=== PATIENT | female | born 1960 | race Caucasian/White ===

== ENCOUNTER → 2019-08-20 14:30 | Outpatient (CLI) | payer OTHER, SELFPAY ==
--- NOTE | 2019-08-20 14:35 | US_ITS ---
PROCEDURE: US TRANSVAGINAL CLINICAL INDICATION: DUB COMPARISON: No exams were available for comparison FINDINGS: Uterus measures 7.1 x 3.6 x 4.0 centimeters. Endometrial stripe is 8.3 millimeters. Uterus is anteverted or anteflexed. There is no cul-de-sac fluid. Left ovary is 2.2 x 2.1 x 2.2 centimeters which appears normal. Right ovary is 2.8 x 1.6 by 2.7 centimeters and appears normal. IMPRESSION: Normal exam with endometrial stripe measuring 8.3 millimeters. This could be related to cycle or hormone replacement therapy. Dictated by: Khris Ordaz 08/20/2019 16:45 Electronically signed by Khris Ordaz in [facility] 08/20/2019 16:45
== END ==
PROVIDERS: PCP Nurse Practitioner Family; Visit Provider Nurse Practitioner Family
DX: N93.9 Abnormal uterine and vaginal bleeding, unspecified (principal)
CPT/HCPCS: 76830

== ENCOUNTER → 2020-05-02 14:15 | Outpatient (CLI) | payer OTHER, SELFPAY ==
[2020-05-02 16:11] LABS: Blood Urea Nitrogen 15 mg/dl (7-17); Estimated Glomerular Filt Rate 73 ml/min (>60); GFR (African American) 89 ML/MIN (>60)
== END ==
PROVIDERS: Visit Provider Nurse Practitioner Family
DX: Z01.818 Encounter for other preprocedural examination (principal)
CPT/HCPCS: 36415; 82565; 84520

== ENCOUNTER → 2020-05-03 08:31 | Outpatient (CLI) | payer OTHER, SELFPAY ==
--- NOTE | 2020-05-03 08:39 | CT_ITS ---
PROCEDURE: CT ABDOMEN PELVIS W CON CLINICAL INDICATION: RLQ PAIN,H/O UTERUS CA Right lower quadrant pain, history of uterine cancer COMPARISON: No exams were available for comparison TECHNIQUE: IV Contrast: 75ML OPTIRAY 350 Oral Contrast 450ml Redicat Axial images obtained with sagittal and coronal reformats. All CT scans at the facility use one or more dose reduction, viz: automated exposure control, ma/kV adjustment per patient size (including targeted exams where dose is matched to indication, i.e. head), or iterative reconstruction technique. FINDINGS: LOWER THORAX: Mild atelectatic or fibrotic change in the lingula. Mild nonspecific thickening of the esophagus ABDOMEN & PELVIS: Multiple gallstones are present. The liver, spleen, adrenal glands, pancreas, and kidneys have an unremarkable appearance. No intestinal obstruction or free air. Prior appendectomy. Prior hysterectomy. There are a few scattered diverticula. No evidence of diverticulitis. No acute bony findings. There is a small sclerotic focus involving the right ilium medially which could be due to a bone island. IMPRESSION: Cholelithiasis. No acute findings apparent. Dictated by: Yong Castillo MD 05/04/2020 10:05 Electronically signed by Yong Castillo MD in [facility] 05/04/2020 10:05
== END ==
PROVIDERS: PCP Nurse Practitioner Family; Visit Provider Nurse Practitioner Family
DX: R10.31 Right lower quadrant pain (principal); Z85.42 Personal history of malignant neoplasm of other parts of uterus
CPT/HCPCS: 74177; Q9967

== ENCOUNTER → 2020-06-06 11:59 | Outpatient (CLI) | payer OTHER, SELFPAY ==
[2020-06-06 13:59] LABS: Coronavirus 19 IgG Antibody Negative (Negative); Coronavirus 19 IgM Antibody Negative (Negative)
== END ==
PROVIDERS: Visit Provider Surgery
DX: Z01.818 Encounter for other preprocedural examination (principal)
CPT/HCPCS: 36415; 86328

== ENCOUNTER 2020-06-07 08:20 | Day surgery (SDC) | payer OTHER, SELFPAY ==
[2020-06-03 09:53] VITALS: BMI 36.3
[2020-06-07 08:38] VITALS: BP 127/82; PULSE 71; RESP 16; TEMP 36.7; O2SAT 98
[2020-06-07 09:05] VITALS: O2SAT 99
--- NOTE | 2020-06-07 09:20 | HMH.ANESCL ---
[facility] Anesthesia Checklist - Patient Identification Patient Identification: Arm Band, Verbal (Name & ) - Structural Data Admitted From: Home Planned Operative Procedure/s: Colonoscopy Consent for Planned Operative Procedure(s) Verified: Yes Verified Documents: Surgical Consent, History and Physical - NPO Status Verified Time NPO: 00:00 - Chart Verification Results Verified: BMP - Additional verifications Anesthesia Reactions: No - Airway Assessment C-Spine Mobility Assessed: Yes TMJ Mobility Assessed: Yes Dentition: Good Dentition - Neurological Assessment Level of Consciousness: Awake, Alert, Appropriate, Follows Commands Hx Seizures: No Numbness or tingling in extremities: No - Anesthesia Plan Anesthesia Risk discussed: Yes Anesthesia Plan: Verified ASA Class: III Anesthesia Type: MAC [facility] History I have reviewed the patient's past medical history: Yes Medical History: Reports:: Atrial Fibrillation, Cancer (uterine), Hypertension Denies:: Diabetes Mellitus Type 1, Diabetes Mellitus Type 2, Internal Pacemaker, MRSA, Seizures *Have you ever received a pneumonia vaccine?: No *Have you received a flu vaccine this season?: No Anesthesia experience/problems:: None Other Surgeries: Yes: Appendectomy, , Hysterectomy-Total. No: Pacemaker Amputation: No Fractures: No - *Social History Last grade of school completed: Advanced degree Smoking Status: Never smoker Alcohol Intake: never Substance Use Type: denies use *Occupational Status:: employed Housing: house Household Members: spouse *Travel in the last 8 weeks: Inside the [place] Family Hx:: Cancer, Heart Attack
--- NOTE | 2020-06-07 09:43 | P.PCN_ITS ---
- Procedure: Date: 06/07/20 Procedure Performed:: Total colonoscopy to terminal ileum with polypectomy by snare and biopsy Indications:: Patient is a 59-year-old female referred by Freda Ding for essentially a screening colonoscopy. This would be her initial colonoscopy. She does have a history of uterine cancer and underwent hysterectomy in July 2019 at [facility]. She had subsequently developed atrial fibrillation and is on Xarelto. Her cementer hand is Yue Ojeda. She has had some vague minor right pelvic pain and underwent recent CT scan which was reportedly unremarkable other than incidental finding of gallstones. Patient did previously undergo appendectomy in the past. She does state that she had contacted her cementer hand who advocated holding the Xarelto 3 days prior to procedure. She has no family history of colon cancer. She is essentially asymptomatic regarding symptoms of rectal bleeding or change in bowel habits. Performing Provider:: Omari Bledsoe MD Referring Provider:: Elma Ding Sedation:: Propofol Procedure:: Patient was taken to endoscopy procedure room. She was positioned in a lateral decubitus position. Adequate intravenous sedation was achieved with anesthesia titration of propofol. Variable stiffness Olympus colonoscope was inserted via the anus. With some minimal difficulty due to floppiness of the sigmoid colon the colonoscope was advanced to the cecum. The residual appendiceal orifice and ileocecal valve were clearly identified. Colonoscope was advanced a short distance into the terminal ileum which appeared grossly normal. Colonoscope was withdrawn through the colon with careful surveillance. She had 2 small polyps encountered in the descending colon the first of which was removed with cold cu tting snare and second with cold biopsy forceps. In the sigmoid colon there was a small polyp removed with cold cutting snare. In the distal sigmoid: There were a couple of likely hyperplastic appearing polyps removed with biopsy forceps and in the rectosigmoid region similar polyps were encountered removed with biopsy forceps. She has sigmoid diverticulosis. Within the rectum retroflexion revealed no evidence of any pathologic internal hemorrhoids. Colonoscope was withdrawn. Findings:: Small adenomatous polyps x2 in the descending colon, one removed with cold b iopsy and one removed with cold snare Small sigmoid polyp, adenomatous appearing removed with cold cutting snare Hyperplastic appearing distal sigmoid polyps removed with biopsy x2 Hyperplastic appearing rectosigmoid colon polyp x2 removed with biopsy forceps Sigmoid diverticulosis Recommendations:: Pending the pathology likely repeat colonoscopy within 3 years Complications:: None immediately apparent Estimated blood obtained (mL): 1
[2020-06-07 09:45] VITALS: BP 79/46; PULSE 56; RESP 12; TEMP 36.7; O2SAT 93
[2020-06-07 09:55] VITALS: BP 102/59; PULSE 56; RESP 15; O2SAT 96
[2020-06-07 10:05] VITALS: BP 107/61; PULSE 62; RESP 15; O2SAT 95
[2020-06-07 10:15] VITALS: BP 113/73; PULSE 56; RESP 16; O2SAT 95
== END 2020-06-07 10:15 | disposition home or self-care (01) ==
LOC: OUTP 08:22
PROVIDERS: PCP Nurse Practitioner Family; Visit Provider Surgery
PROC: 0DJD8ZZ Inspection of Lower Intestinal Tract, Via Natural or Artificial Opening Endoscopic (ICD-10-PCS; CPT 45385; principal; 2020-06-07 09:30)
DX: Z12.11 Encounter for screening for malignant neoplasm of colon (principal); K63.5 Polyp of colon; K57.30 Diverticulosis of large intestine without perforation or abscess without bleeding; Z79.01 Long term (current) use of anticoagulants; I48.91 Unspecified atrial fibrillation; I10 Essential (primary) hypertension; Z90.49 Acquired absence of other specified parts of digestive tract; Z90.710 Acquired absence of both cervix and uterus; Z80.9 Family history of malignant neoplasm, unspecified; Z82.3 Family history of stroke; Z79.899 Other long term (current) drug therapy
CPT/HCPCS: 45385; 45380

== ENCOUNTER → 2021-10-06 14:36 | Outpatient (CLI) | payer OTHER, SELFPAY ==
[2021-10-06 15:45] LABS: Basophils # 0.1 K/mm3 (0-0.2); Eosinophils # 0.2 K/mm3 (0.0-0.4); Eosinophils % 2.5 % (0.1-12.0); Hematocrit 43.7 % (37.0-47.0); Lymphocytes # 2.1 K/mm3 (0.7-4.5); Lymphocytes % 32.4 % (10-50); Mean Corpuscular HGB Conc 34.4 g/dL (31.8-35.4); Mean Corpuscular Hemoglobin 33.1 pg (27.0-31.2); Mean Corpuscular Volume 96.2 fl (81-99); Mean Platelet Volume 8.4 fl (7.4-10.4); Monocytes # 0.4 K/mm3 (0.1-1.0); Monocytes % 5.7 % (1.7-9.3); Neutrophils # 3.7 K/mm3 (1.8-7.8); Neutrophils % 58.4 % (37.0-80.0); Platelet Count 211 K/mm3 (142-424); Red Blood Count 4.54 M/mm3 (4.20-5.40); Red Cell Distribution Width 12.8 % (11.5-17.5); White Blood Count 6.4 K/mm3 (4.8-10.8)
[2021-10-06 22:50] LABS: Cholesterol 208 mg/dl (140-200); Triglycerides 127 mg/dl (30-150); VLDL Cholesterol 25 mg/dL (0-40)
[2021-10-06 22:51] LABS: Chol/HDL Ratio 4.2 (1-3.5); HDL Cholesterol 50 mg/dl (40-60)
[2021-10-06 23:09] LABS: Direct LDL Cholesterol 138.28 mg/dL (100-129)
== END ==
PROVIDERS: Visit Provider Internal Medicine
DX: I48.91 Unspecified atrial fibrillation (principal)
CPT/HCPCS: 36415; 80061; 85025

== ENCOUNTER 2023-02-17 16:21 | Emergency (ER) | payer BC, SELFPAY ==
[2023-02-17 16:25] VITALS: BP 148/79; PULSE 58; RESP 20; TEMP 36.9; O2SAT 95; BMI 31.1
--- NOTE | 2023-02-17 16:35 | EXP.UTC ---
Discharge Plan Disposition Patient Disposition: Home, Self-Care Condition: Fair Prescriptions Prescriptions: New ondansetron 4 mg tablet,disintegrating 4 mg PO Q8H PRN (Reason: nausea and vomiting) Qty: 10 0RF No Action losartan-hydrochlorothiazide 100-25 mg tablet 100 tab PO DAILY carvedilol 12.5 mg tablet 12.5 mg PO BID rivaroxaban 20 mg tablet 20 mg PO DAILY Referrals Follow up/Referrals: Nely Ding APRN [Primary Care Provider] - See instructions Clinical Impressions Clinical Impression: Abdominal pain Instructions Patient Instructions: DI for Acute Abdominal Pain, DI for Nausea -- Adult, Nausea and Vomiting-Adult Discharge ED Provider: Srinivas Barbosa [facility] General Chief complaint: Abdominal Pain Stated complaint: Vomitting,Stomach pain Time Seen by Provider: 02/17/23 16:35 History of Present Illness Provider Complaint: Patient states that she woke up this morning with her stomach cramping and hurting a little felt like upset/gas pain States that she took some tums and it got better then later in the morning she started with vomiting States that she has vomited about 3-4 times today and still having nausea States that her stomach feels a little sore from the vomiting, States that she hasnt had any diarrhea and last BM was this morning, this evening when she was still having upset stomach so she came in Denies fever, States that she is unsure if she has been around the stomach bug or not but she has recently traveled Related Data Home Medications Medication Instructions Recorded Confirmed carvedilol 12.5 mg tablet 12.5 mg PO BID Hypertension 05/20/20 02/17/23 losartan 100 100 tab PO DAILY Hypertension 05/20/20 02/17/23 mg-hydrochlorothiazide 25 mg tablet rivaroxaban 20 mg tablet 20 mg PO DAILY a-fib 05/20/20 02/17/23 Previous Rx's Medication Instructions Recorded ondansetron 4 mg disintegrating 4 mg PO Q8H PRN nausea and 02/17/23 tablet vomiting #10 tabs Allergies Allergy/AdvReac Type Severity Reaction Status Date / Time No Known Allergies Allergy Verified 02/17/23 17:30 [facility] Disclaimer: The information contained in this section may have been updated after the patient was seen, as this information can be updated by other users. Social History Smoking Status: Never smoker alcohol intake: never substance use type: denies use current occupational status: employed Travel in the last 8 weeks: [place] the [place] household members: spouse housing: house current occupation: self caffeine: Yes ROS Obtained: Yes All systems reviewed & no additional complaints except as documented and Yes Systems reviewed as appropriate & no additional complaints except as documented Constitutional Constitutional: Reports system reviewed and no additional complaints, except as documented, Reports as per HPI, Denies body ache, Denies chills and Denies fever(s) ENT Ears, Nose, Mouth, and Throat: Reports system reviewed and no additional complaints, except as documented and Reports as per HPI Cardiovascular Cardiovascular: Reports system reviewed and no additional complaints, except as documented and Reports as per HPI Respiratory Respiratory: Reports system reviewed and no additional complaints, except as documented and Reports as per HPI Gastrointestinal Gastrointestingal: Reports system reviewed and no additional complaints, except as documented, as per HPI, nausea and vomiting; Denies abdominal pain or diarrhea Physical Exam General General appearance: alert and in no apparent distress ENT ENT exam: Present mucous membranes moist Respiratory Respiratory exam: Present normal lung sounds bilaterally; Absent respiratory distress or wheezes Cardiovascular Cardiovascular exam: Present regular rate and normal heart sounds; Absent normal rhythm or bradycardia Neurological Exam Neurological
[2023-02-17 16:47] VITALS: BP 148/79; PULSE 58; RESP 20; TEMP 36.9; O2SAT 95
[2023-02-17 17:14] VITALS: BP 112/92; PULSE 57; O2SAT 100
[2023-02-17 17:23] VITALS: BP 112/92; PULSE 54; RESP 16; TEMP 37.2; O2SAT 100; BMI 30.7
[2023-02-17 17:53] LABS: Chloride 100 mmol/L (98-107); Potassium 3.8 mmoL/L (3.5-5.1); Sodium 135 mmol/L (136-145)
[2023-02-17 17:56] LABS: Alanine Aminotransferase 22 U/L (12-78); Albumin Level 4.6 g/dl (3.5-5.0); Albumin/Globulin Ratio 1.4 (1.1-1.8); Alkaline Phosphatase 83 U/L (38-126); Anion Gap 9.8 mEq/L (5-15); Aspartate Amino Transferase 29 U/L (14-36); Basophils # 0.1 K/mm3 (0-0.2); Basophils % 0.8 % (0.1-2.0); Bilirubin,Total 1.1 mg/dl (0.2-1.3); Blood Urea Nitrogen 14 mg/dl (7-17); Calcium 9.2 mg/dl (8.4-10.2); Carbon Dioxide 29 mmol/L (22.0-30.0); Creatinine Clearance Estimated 79 mL/min (50-200); Eosinophils # 0.1 K/mm3 (0.0-0.4); Estimated Glomerular Filt Rate 101 ml/min (>60); GFR (African American) 123 ML/MIN (>60); Globulin 3.4 g/dL (1.3-3.2); Glucose 126 mg/dl (74-100); Hematocrit 47.5 % (37.0-47.0); Hemoglobin 15.5 g/dL (12.2-16.2); Lipase 87 U/L (23-300); Lymphocytes # 1.4 K/mm3 (0.7-4.5); Lymphocytes % 13.4 % (10-50); Mean Corpuscular HGB Conc 32.6 g/dL (31.8-35.4); Mean Corpuscular Hemoglobin 31.2 pg (27.0-31.2); Mean Corpuscular Volume 95.7 fl (81-99); Mean Platelet Volume 8.1 fl (7.4-10.4); Monocytes # 0.6 K/mm3 (0.1-1.0); Monocytes % 5.4 % (1.7-9.3); Neutrophils % 79.2 % (37.0-80.0); Platelet Count 235 K/mm3 (142-424); Red Blood Count 4.96 M/mm3 (4.20-5.40); Red Cell Distribution Width 12.9 % (11.5-17.5); White Blood Count 10.1 K/mm3 (4.8-10.8)
[2023-02-17 18:19] VITALS: BP 131/88; PULSE 70; O2SAT 97
[2023-02-17 18:24] LABS: Microscopic, Urine URINE MICROSCOPIC (MICROSCOPIC)
[2023-02-17 18:25] LABS: Appearance,Urine SL CLOUDY (Clear); Bilirubin,Urine Negative (Negative); Blood, Urine TRACE-I (Negative); Color,Urine DK YELLOW (Yellow); Glucose,Urine (UA) Negative (Negative); Ketones,Urine Negative (Negative); Leukocyte Esterase,Urine Negative (Negative); Nitrate,Urine Negative (Negative); Protein,Urine TRACE (Negative); Specific Gravity, Urine >= 1.030 (1.005-1.030)
[2023-02-17 18:30] VITALS: BP 115/61; PULSE 57; O2SAT 97
--- NOTE | 2023-02-17 18:35 | HMH.EDGENADL ---
Discharge Plan Disposition Patient Disposition: Home, Self-Care Condition: Fair Prescriptions Prescriptions: New ondansetron 4 mg tablet,disintegrating 4 mg PO Q8H PRN (Reason: nausea and vomiting) Qty: 10 0RF promethazine 25 mg tablet 25 mg PO Q6H PRN (Reason: sedation) Qty: 30 0RF No Action losartan-hydrochlorothiazide 100-25 mg tablet 100 tab PO DAILY carvedilol 12.5 mg tablet 12.5 mg PO BID rivaroxaban 20 mg tablet 20 mg PO DAILY Referrals Follow up/Referrals: Nely Ding APRN [Primary Care Provider] - See instructions Clinical Impressions Clinical Impression: Abdominal pain Instructions Patient Instructions: DI for Acute Abdominal Pain, DI for Nausea -- Adult, Nausea and Vomiting-Adult Discharge ED Provider: Srinivas Barbosa General Adult HPI General Chief complaint: Abdominal Pain Stated complaint: Vomitting,Stomach pain Time Seen by Provider: 02/17/23 16:35 Mode of Arrival: Ambulatory Source of Information: Patient Limitations: No Limitations Description of Symptoms (Recalled from ER Triage Doc. by RN): pt transferred from [facility] to ed for further eval of abdominal pain. pt reports generalized pain across abdomen. pain comes and goes. began around 10 am today. pt did take some tums at home because she thought it was reflux. History of Present Illness HPI narrative: Patient is a 62-year-old female with past medical history of hypertension who presents with concern for abdominal pain. She was sent over from the urgent care due to persistent nausea and vomiting. She says that she feels like she has contracted a GI bug. She says that around 10:00 today she started to get acute onset of diffuse crampy abdominal pain. She also got quite nauseous and started vomiting. She is likely this was related to reflux so she started taking some Tums. Denies any fever or chills. She has had numerous surgeries on her abdomen. Continues to have normal bowel movements. Denies any urinary symptoms. Related Data Home Medications Medication Instructions Recorded Confirmed carvedilol 12.5 mg tablet 12.5 mg PO BID Hypertension 05/20/20 02/17/23 losartan 100 100 tab PO DAILY Hypertension 05/20/20 02/17/23 mg-hydrochlorothiazide 25 mg tablet rivaroxaban 20 mg tablet 20 mg PO DAILY a-fib 05/20/20 02/17/23 Previous Rx's Medication Instructions Recorded ondansetron 4 mg disintegrating 4 mg PO Q8H PRN nausea and 02/17/23 tablet vomiting #10 tabs promethazine 25 mg tablet 25 mg PO Q6H PRN sedation #30 tabs 02/17/23 Allergies Allergy/AdvReac Type Severity Reaction Status Date / Time No Known Allergies Allergy Verified 02/17/23 17:30 [facility] Disclaimer: The information contained in this section may have been updated after the patient was seen, as this information can be updated by other users. Social History Smoking Status: Never smoker alcohol intake: never substance use type: denies use current occupational status: employed Travel in the last 8 weeks: [place] the [place] household members: spouse housing: house current occupation: self caffeine: Yes ROS Obtained: Yes All systems reviewed & no additional complaints except as documented Physical Exam General General appearance: alert and in no apparent distress Head Head exam: atraumatic, normocephalic and normal inspection Eye Eye exam: Present normal appearance and PERRL ENT ENT exam: Present normal exam, mucous membranes moist and normal external ear exam Neck Neck exam: Present normal inspection and trachea midline Chest Chest inspection: Present normal inspection and symmetric chest wall rise Respiratory Respiratory exam: Present normal lung sounds bilaterally; Absent respiratory distress Cardiovascular Cardiovascular exam: Present regular rate and normal rhythm Abdominal Exam Abdominal exam: Present soft and tenderness; A
--- NOTE | 2023-02-17 18:38 | CT_ITS ---
PROCEDURE INFORMATION: Exam: CT Abdomen And Pelvis With Contrast Exam date and time: 02/17/2023 6:53 PM Age: 62 years old Clinical indication: Generalized; Prior surgery; Surgery date: 6+ months; Surgery type: Hysterectomy; Patient HX: Patient awoke with gas pain early this morning, took tums which didnt help. She had nausea, vomiting and abdominal pain at 10am which has progressively gotten worse as the day has gone on. TECHNIQUE: Imaging protocol: Computed tomography of the abdomen and pelvis with contrast. Radiation optimization: All CT scans at this facility use at least one of these dose optimization techniques: automated exposure control; mA and/or kV adjustment per patient size (includes targeted exams where dose is matched to clinical indication); or iterative reconstruction. Contrast material: ISOVUE; Contrast volume: 75 ml; Contrast route: IV; REPORTING DATA: Count of CT and Cardiac NM exams in prior 12 months: This patient has received 0 known CTs and 0 known cardiac nuclear medicine studies in the 12 months prior to the current study. COMPARISON: CT ABDOMEN PELVIS W CON 05/03/2020 9:21 AM FINDINGS: Liver: Normal. No mass. Gallbladder and bile ducts: Several moderate-sized calcified gallstones noted in the gallbladder. No gallbladder wall thickening. Pancreas: Normal. No ductal dilation. Spleen: Normal. No splenomegaly. Adrenal glands: Normal. No mass. Kidneys and ureters: Normal. No hydronephrosis. Stomach and bowel: There appears to be moderate wall thickening of the gastric antrum and duodenum with mild surrounding fatty stranding, suggesting gastroenteritis. No evidence of bowel obstruction. Appendix: No evidence of appendicitis. Intraperitoneal space: Unremarkable. No free air. No significant fluid collection. Vasculature: Unremarkable. No abdominal aortic aneurysm. Lymph nodes: Unremarkable. No enlarged lymph nodes. Urinary bladder: Unremarkable as visualized. Reproductive: Uterus is surgically absent. No adnexal abnormality. Bones/joints: There is mild thoracolumbar scoliosis and mild multilevel degenerative disc disease. No acute fracture. Soft tissues: Unremarkable. IMPRESSION: Findings suggesting gastroenteritis involving the gastric antrum and duodenum. Other chronic incidental findings as noted
[2023-02-17 18:53] LABS: Bacteria,Urine 1+ /lpf; Mucus,Urine 1+ /lpf
== END 2023-02-17 20:51 | disposition home or self-care (01) ==
LOC: UTC 16:49 → ER 17:08
PROVIDERS: Emergency Provider Student in an Organized Health Care Education/Training Program; PCP Nurse Practitioner Family
DX: R10.84 Generalized abdominal pain (principal); R11.2 Nausea with vomiting, unspecified
CPT/HCPCS: 74177; 80053; 81001; 83690; 85025; 96360; 96374; 96375; 99284; 99285; J2405; Q9967

== ENCOUNTER 2023-05-05 10:13 | Emergency (ER) | payer BC, SELFPAY ==
[2023-05-05 10:49] VITALS: BP 0/0; PULSE 0; RESP 0; TEMP -17.7; TEMP 0; O2SAT 0
== END 2023-05-05 10:50 | disposition left against medical advice (07) ==
PROVIDERS: Emergency Provider Nurse Practitioner Family; PCP Nurse Practitioner Family
DX: R30.0 Dysuria (principal)

== ENCOUNTER 2023-07-20 12:23 | Emergency (ER) | payer BC, SELFPAY ==
[2023-07-20 12:25] VITALS: BP 123/70; PULSE 63; RESP 20; TEMP 37.1; O2SAT 97; BMI 32.0
--- NOTE | 2023-07-20 12:42 | EXP.UTC ---
Discharge Plan Disposition Patient Disposition: Home, Self-Care Condition: Good Prescriptions Prescriptions: New doxycycline hyclate 100 mg capsule 100 mg PO BID Qty: 20 0RF No Action losartan-hydrochlorothiazide 100-25 mg tablet 100 tab PO DAILY carvedilol 12.5 mg tablet 12.5 mg PO BID rivaroxaban 20 mg tablet 20 mg PO DAILY ondansetron 4 mg tablet,disintegrating 4 mg PO Q8H PRN (Reason: nausea and vomiting) Qty: 10 0RF promethazine 25 mg tablet 25 mg PO Q6H PRN (Reason: sedation) Qty: 30 0RF Referrals Follow up/Referrals: Bobbi Black APRN [Primary Care Provider] - See instructions Activity Restrictions/Add. Instructions Additional Instructions/Restrictions: Stop using the ointment and start oral Doxycycline Warm compresses to left eye frequently throughout the DAY Follow up with eye Doctor next week if no improvement or any worsening of symptoms Return if needed Clinical Impressions Clinical Impression: Hordeolum externum (stye) Qualifiers: Laterality: left Eyelid: upper Qualified Code(s): H00.014 - Hordeolum externum left upper eyelid Instructions Patient Instructions: Roxium, DI for Hordeolum, Doxycycline Discharge ED Provider: Ngozi Cueto [facility] HPI General Stated complaint: possible stye on left eye, swollen/redness Mode of Arrival: Ambulatory Source of Information: Patient Limitations: No Limitations Time Seen by Provider: 07/20/23 12:42 Description of Symptoms (Recalled from Triage Doc. by RN): PATIENT C/O REDNESS AND SWELLING TO LEFT EYE THAT STARTED EARLIER THIS WEEK. SHE REPORTS SEEING HER PCP YESTERDAY AND WAS GIVEN ERYTHROMYCIN OINTMENT FOR A STY, WHICH SHE STARTED YESTERDAY X 2 DOSES. SHE STATES THIS MORNING HER EYE WAS MORE SWOLLEN AND RED, AND SHE WAS ADVISED BY PHARMACY TO GET HER EYE CHECKED BEFORE CONTINUING THE OINTMENT HEENT Symptoms (Recalled from RN notes): Yes Resp Symptoms (Recalled from RN notes): No Skin Symptoms (Recalled from RN notes): No MS Symptoms (Recalled from RN notes): No Functional Status (Recalled from RN notes): WNL History of Present Illness Provider Complaint: Patient state that she noticed earlier in the week that she had some swelling and redness to her left eyelid States that it continued all week and she saw her PCP yesterday and was given erythromycin ointment and she used it twice yesterday and this morning when she woke up it was more red and swollen State that she spoke with the pharmacy and they told her that she needed to get it checked out before using the ointment again in case she is allergic Related Data Home Medications Medication Instructions Recorded Confirmed carvedilol 12.5 mg tablet 12.5 mg PO BID Hypertension 05/20/20 02/17/23 losartan 100 100 tab PO DAILY Hypertension 05/20/20 02/17/23 mg-hydrochlorothiazide 25 mg tablet rivaroxaban 20 mg tablet 20 mg PO DAILY a-fib 05/20/20 02/17/23 Previous Rx's Medication Instructions Recorded ondansetron 4 mg disintegrating 4 mg PO Q8H PRN nausea and 02/17/23 tablet vomiting #10 tabs promethazine 25 mg tablet 25 mg PO Q6H PRN sedation #30 tabs 02/17/23 doxycycline hyclate 100 mg capsule 100 mg PO BID #20 caps 07/20/23 Allergies Allergy/AdvReac Type Severity Reaction Status Date / Time No Known Allergies Allergy Verified 02/17/23 17:30 Worker's Comp Is this a Worker's Comp case?: [facility] Dis[facility]: The information contained in this section may have been updated after the patient was seen, as this information can be updated by other users. Social History Smoking Status: Never smoker alcohol intake: never substance use type: denies use current occupational status: employed Travel in the last 8 weeks: [place] the [place] household members: spouse housing: house current occupation: self caffeine: Yes ROS Obtained: Yes All systems reviewed & no additiona
[2023-07-20 12:49] VITALS: BP 123/70; PULSE 63; RESP 20; TEMP 37.1; O2SAT 97
== END 2023-07-20 12:56 | disposition home or self-care (01) ==
PROVIDERS: Emergency Provider Nurse Practitioner; PCP Nurse Practitioner Family
DX: H00.014 Hordeolum externum left upper eyelid (principal)
CPT/HCPCS: 99212; 99214; G0463

== ENCOUNTER 2024-09-22 09:30 | Outpatient (POV) | payer BC, SELFPAY | END 2024-09-22 23:59 | disposition home or self-care (01) | LOC: SC 09-23 07:56 | PROVIDERS: Visit Provider Dermatology | DX: Z00.00 Encounter for general adult medical examination without abnormal findings (principal) ==

== ENCOUNTER 2025-07-02 07:25 | Day surgery (SDC) | payer BC, SELFPAY ==
[2025-06-29 15:18] VITALS: BMI 35.5
--- NOTE | 2025-07-02 06:17 | P.HP_ITS ---
HPI HPI HPI: Patient presents for follow-up colonoscopy due to history of polyps. She is a 64-year-old female with history of uterine cancer status post hysterectomy and July 2019 at [facility]. She has a history of atrial fibrillation on Xarelto. I had performed initial screening colonoscopy on 06/07/2020. She was found to have 7 polyps removed but most of these were hyperplastic with descending colon polyps x 2 revealing tubular adenoma. There was also sigmoid diverticulosis. She presents for follow-up colonoscopy due to tubular adenoma. [facility] Disclaimer: The information contained in this section may have been updated after the patient was seen, as this information can be updated by other users. Medical History Uterine cancer Hypertension Atrial fibrillation Surgical History Hx of section Hx of appendectomy Hx of hysterectomy Family History Other Family history of cancer Family history of hypertension Social History Smoking Status: Never smoker alcohol intake: current substance use type: denies use current occupational status: employed and retired Travel in the last 8 weeks?: None household members: spouse housing: house current occupation: self caffeine: Yes Have you lived/traveled outside US in past 30 days?: No Contact w/someone who lives/traveled outside US past 30 days?: No Exposure to someone with infectious disease in past 14 days?: No Do you have a fever (greater than 100.4 F or 38 C)?: No Have you tested positive for COVID-19?: No Exposed to someone with COVID-19 in past 14 days?: No Do you have a sore throat?: No Do you have a cough?: No Do you have any weakness?: No Are you experiencing any nausea/vomitting?: No Do you have any diarrhea?: No Are you experiencing any unusual bleeding?: No Do you have any muscle aches/pain?: No Do you have any abdominal pain?: No Are you experiencing loss of taste or smell?: No Other Medical History Have you received the Flu Vaccine for this season: No Have you received the Pneumonia Vaccine: No Meds Home Medications and Allergies Home Medications ?Medication ?Instructions ?Recorded ?Confirmed ?Type carvedilol 12.5 mg tablet 3.125 mg PO BID Hypertension 05/20/20 06/29/25 History losartan 100 1 tab PO DAILY Hypertension 05/20/20 06/29/25 History mg-hydrochlorothiazide 25 mg tablet rivaroxaban 20 mg tablet (Xarelto) 20 mg PO DAILY a-fi b 05/20/20 06/29/25 History sodium,potassium,mag sulfates 17.5 See Rx Instructions PO .COMPLEX 06/03/25 06/29/25 Rx gram-3.13 gram-1.6 gram oral soln #354 mL (Suprep Bowel Prep Kit) New Prescriptions to Start Prescriptions: Allergies Allergy/AdvReac Type Severity Reaction Status Date / Time No Known Allergies Allergy Verified 07/02/25 07:57 Exam Data for Last 24 hours I & O for Last 24 hours: Intake & Output 06/29/25 06/30/25 07/01/25 07/02/25 11:59 11:59 11:59 11:59 Weight 220 lb Constitutional Constitutional: no acute distress *Routine HEENT Exam Head: Present normocephalic Eye: Present EOMI and PERRL ENT: Present mucous membranes moist *Routine Neck Exam Neck: Present supple; Absent lymphadenopathy *Routine Respiratory Exam Respiratory: Present CTA bilaterally *Routine Cardiovascular Exam Cardiovascular: Present RRR *Routine Abdominal Exam Abdominal: Present soft and normoactive bowel sounds; Absent tenderness *Routine Rectal Exam Rectal:: deferred *Routine Genitalia Exam Genitalia:: deferred *Routine Extremities Exam Extremities: Absent cyanosis, clubbing or edema *Routine Skin Exam Skin: Present warm; Absent rash *Routine Neurological Exam Neurological: Present alert and oriented X3 Assessment and Plan *Assessment and plan (1) Tubular adenoma of colon: Status: Acute Category: Medical Code(s): D12.6 - Benign neoplasm of colon, unspecified
[2025-07-02 07:42] VITALS: BP 109/72; PULSE 65; RESP 18; TEMP 36.2; O2SAT 97; BMI 35.5
[2025-07-02] MEDS: LACTATED RINGERS 1000ML 1,000 ML 50 ML IV (07:56)
--- NOTE | 2025-07-02 08:06 | EXP.ANES.CKL ---
[facility] Disclaimer: The information contained in this section may have been updated after the patient was seen, as this information can be updated by other users. Medical History Uterine cancer Hypertension Atrial fibrillation Surgical History Hx of section Hx of appendectomy Hx of hysterectomy Family History Other Family history of cancer Family history of hypertension Social History Smoking Status: Never smoker alcohol intake: current substance use type: denies use current occupational status: employed and retired Travel in the last 8 weeks?: None household members: spouse housing: house current occupation: self caffeine: Yes Have you lived/traveled outside US in past 30 days?: No Contact w/someone who lives/traveled outside US past 30 days?: No Exposure to someone with infectious disease in past 14 days?: No Do you have a fever (greater than 100.4 F or 38 C)?: No Have you tested positive for COVID-19?: No Exposed to someone with COVID-19 in past 14 days?: No Do you have a sore throat?: No Do you have a cough?: No Do you have any weakness?: No Are you experiencing any nausea/vomitting?: No Do you have any diarrhea?: No Are you experiencing any unusual bleeding?: No Do you have any muscle aches/pain?: No Do you have any abdominal pain?: No Are you experiencing loss of taste or smell?: No [facility] Anesthesia Checklist Patient Identification Patient Identification: Arm Band and Verbal (Name & ) Structural Data Admitted From: Home Planned Operative Procedure/s: colonscopy Consent for Planned Operative Procedure(s) Verified: Yes Verified Documents: Surgical Consent and History and Physical NPO Status Verified Time NPO: 00:00 Additional verifications Anesthesia Reactions: No Airway Assessment Mallampati Score:: Class II Neurological Assessment Level of Consciousness: Awake, Alert and Appropriate Hx Seizures: No Numbness or tingling in extremities: No Anesthesia Plan Anesthesia Risk discussed: Yes Anesthesia Plan: Verified ASA Class: II Anesthesia Type: MAC
--- NOTE | 2025-07-02 08:27 | HMH.SCOPE ---
Procedure: Date: 07/02/25 Patient Date of :: 1960 Indications:: Patient presents for follow-up colonoscopy due to history of polyps. She is a 64-year-old female with history of uterine cancer status post hysterectomy and July 2019 at [facility]. She has a history of atrial fibrillation on Xarelto. I had performed initial screening colonoscopy on 06/07/2020. She was found to have 7 polyps removed but most of these were hyperplastic with descending colon polyps x 2 revealing tubular adenoma. There was also sigmoid diverticulosis. She presents for follow-up colonoscopy due to tubular adenoma. Performing Provider:: Omari Bledsoe MD Referring Provider:: Freda Griffith Sedation:: MAC sedation
--- NOTE | 2025-07-02 08:59 | HMH.SCOPE ---
Procedure: Date: 07/02/25 Patient Date of :: 1960 Procedure Performed:: Total colonoscopy to terminal ileum Indications:: Patient presents for follow-up colonoscopy due to history of polyps. She is a 64-year-old female with history of uterine cancer status post hysterectomy and July 2019 at [facility]. She has a history of atrial fibrillation on Xarelto. I had performed initial screening colonoscopy on 06/07/2020. She was found to have 7 polyps removed but most of these were hyperplastic with descending colon polyps x 2 revealing tubular adenoma. There was also sigmoid diverticulosis. She presents for follow-up colonoscopy due to tubular adenoma. Performing Provider:: Omari Bledsoe MD Referring Provider:: Freda Griffith Sedation:: MAC sedation Procedure:: Patient history was obtained and appropriate physical examination was performed. Patient's medications and allergies were reviewed. Informed consent was obtained after explaining the benefits, alternatives, and risks of the procedure including, but not limited to, bleeding, perforation, missed lesions, and adverse reaction to anesthesia medications. Patient was transported to endoscopy procedure room. Patient was connected to monitoring devices. Throughout the procedure the patient's blood pressure, pulse, and oxygen saturations were monitored continuously. Patient identification and planned procedure were verified by the staff. Patient was positioned in lateral decubitus position. Digital anorectal exam was performed. Variable stiffness Olympus colonoscope was inserted and advanced under direct visualization to the cecum. Adequacy of the colonic preparation was noted. The colonoscope was advanced a short distance into the terminal ileum. The colonoscope was then slowly withdrawn while carefully examining the color, texture, anatomy, and integrity of the mucosoa circumferentially. Within the rectum retroflexion was performed. Colonoscope was then withdrawn. Impression: There was some liquid throughout the colon. This was able to be mostly cleared with irrigation and suctioning. There was a bit of pasty stool adherent to the lucero in the cecum. This was cleared. She did have a rather redundant floppy sigmoid colon which made advancement of the colonoscope somewhat challenging. There were several [place] sigmoid diverticuli. She had some prolapsing internal hemorrhoids. No polyps were identified. . Findings:: Redundant colon Sigmoid diverticulosis Internal hemorrhoids . Recommendations:: Repeat colonoscopy 7 to 10 years given prior history of polyps favor 7 years. Complications:: None immediately apparent Estimated blood obtained (mL): 0 Colonoscopy Component Colonoscopy Component Was a colonoscopy performed during today's procedure?: Yes Recommended follow up colonoscopy of at least 10 years?: No If no, follow up colonoscopy recommended in ___ years?: 7-10 Reason for not recommending >/= 10 yr follow-up interval?: See above
[2025-07-02 09:00] VITALS: BP 89/56; PULSE 111; RESP 18; TEMP 36.3; O2SAT 95
[2025-07-02 09:10] VITALS: BP 101/53; PULSE 102; RESP 18; O2SAT 94
[2025-07-02 09:20] VITALS: BP 106/73; PULSE 99; RESP 18; O2SAT 94
[2025-07-02 09:30] VITALS: BP 132/74; PULSE 103; RESP 16; O2SAT 97
== END 2025-07-02 09:32 | disposition home or self-care (01) ==
PROVIDERS: PCP Nurse Practitioner; Visit Provider Surgery
PROC: 0DJD8ZZ Inspection of Lower Intestinal Tract, Via Natural or Artificial Opening Endoscopic (ICD-10-PCS; CPT 45378; principal; 2025-07-02 08:30)
DX: Z12.11 Encounter for screening for malignant neoplasm of colon (principal); Z85.42 Personal history of malignant neoplasm of other parts of uterus; Z86.0101 Personal history of adenomatous and serrated colon polyps; Z86.0102 Personal history of hyperplastic colon polyps; I48.91 Unspecified atrial fibrillation; K57.30 Diverticulosis of large intestine without perforation or abscess without bleeding; K64.8 Other hemorrhoids; Q43.8 Other specified congenital malformations of intestine; I10 Essential (primary) hypertension; Z79.899 Other long term (current) drug therapy
CPT/HCPCS: 45378; J2003; J2704; J7120

== ENCOUNTER 2025-11-05 14:18 | Outpatient (CLI) | payer MEDICARE, SELFPAY ==
--- OUTSIDE RECORDS SUMMARY | 2025-11-05 14:23 | XMS_ITS | Encounter Summary ---
Author Organization Healthcare Address [address] [place] [address] Care Team Providers Care Tool And Cutter Grinder Name Role Phone Teo Ellis MD Primary Care Provider [phone] Encounter Details Date Type Department Care Team (Late st Contact Info) Description 08/25/2025 Results Follow-Up Obstetrics & Gynecology [address] [place] [address] Rochelle Ponce, TRANSIT PROOF MACHINE OPERATOR [address] [place] [address] Social History Tobacco Use Types Packs/Day Years Used Date Smoking Tobacco: Never Passive Smoke Exposure: Past Smokeless Tobacco: Never Alcohol Use Standard Drinks/Week Comments Not Currently 0 (1 standard drink = 0.6 oz pur e alcohol) PHQ-2 Answer Date Recorded Patient Health Questionnaire-2 Score 0 08/20/2025 PHQ-9 Answer Date Recorded Patient Health Questionnaire-9 Score 0 07/23/2025 PHQ-2A Answer Date Recorded Patient Health Questionnaire-2 Score 0 07/23/2023 Comments No Sex and Gender Information Value Date Recorded Sex Assigned at Female 09/04/2021 12:53 PM EDT Legal Sex Female 7:33 PM EDT Gender Identity Female 09/04/2021 12:53 PM EDT Sexual Orientation Straight 09/04/2021 12 :53 PM EDT documented as of this encounter Plan of Treatment Upcoming Encounters Date Type Department Care Team (Late st Contact Info) Description 08/08/2026 10:30 AM EDT Office Visit [facility] [place] [address], [address] [place] [address] Michelle Thrasher, TRANSIT PROOF MACHINE OPERATOR [address] [place] [address] documented as of this encounter Visit Diagnoses Not on filedocumented in this encounter Additional Health Concerns Assessment Noted Time PHQ-9 Depression Total Score: 0 07/23/20 25 10:24 AM EDT A fall risk assessment has been complete d for the patient 08/20/2025 10:21 AM EDT A Body Mass Index follow-up plan has been documented for the patient 08/20/2025 11:32 AM EDT documented as of this encounter Care Teams Tool And Cutter Grinder Relationship Specialty Start Date End Date Teo Ellis MD [address] [place] [address] [address] [place] [address] PCP - General Family Medicine 03/05/24 documented as of this encounter
--- OUTSIDE RECORDS SUMMARY | 2025-11-05 14:23 | XMS_ITS | Encounter Summary ---
Author Organization Healthcare Address [address] [place] [address] Care Team Providers Care Cookie Mixer Helper Name Role Phone Teo Ellis MD Primary Care Provider [phone] Encounter Details Date Type Department Care Team (Late st Contact Info) Description 08/25/2025 Outside Procedure External Location [address] [place] [address] Rochelle Ponce, LAY MIDWIFE [address] [place] [address] Social History Tobacco Use Types [...] Description 08/08/2026 10:30 AM EDT Office Visit [facility] [place] [address], [address] [place] [address] Michelle Thrasher, LAY MIDWIFE [address] [place] [address] documented as of this encounter Procedures Procedure Name Priority Date/Time Associated Diagnosis Comments DEXA BONE DENSITY 08/25/2025 9:3 9 AM EDT documented in this encounter Results * Dexa Bone Density (08/25/2025 9:39 AM EDT) Anatomical Region Laterality Modality L-spine Radiographic Eva ging 08/25/2025 9:39 AM EDT Narrative 08/25/2025 1:42 PM EDT [address] [address] Name: ANN-MARIE ORANTES Exam Date: 08/25/2025 : 1960 Age 64 years Gender: F Physician: ROCHELLE PONCE Facility: [facility] Facility HSV: Outpatient Exam: DEXA BONE DENSITY AX EXAMINATION: DUAL X-RAY ABSORPTIOMETRY (DXA) FOR BONE MINERAL DENSITY. CLINICAL INDICATION: Screening for osteoporosis; Postmenopausal. CLINICAL HISTORY: 64 years old, Female. Postmenopausal. TECHNIQUE: An axial (e.g., hips, spine) and/or appendicular (e.g., radius) exam was performed, as appropriate, using [employer] densitometer. Images are obtained for bone mineral density measurement and are not obtained for diagnostic purposes. [id number] COMPARISON: None. FINDINGS: Scan quality: Good. LUMBAR SPINE (L1-L4): BMD (in g/cm*2): 1.334. T-score: 1.1. Z-score: 2.7. LEFT FEMORAL NECK: BMD (in g/cm*2): 1.028. T-score: -0.1. Z-score: 1.4. LEFT TOTAL HIP: BMD (in g/cm*2): 0.997. T-score: -0.1. Z-score: 1.1. RIGHT FEMORAL NECK: BMD (in g/cm*2): 1.008. T-score: -0.2. Z-score: 1.2. RIGHT TOTAL HIP: BMD (in g/cm*2): 1.029. T-score: 0.2. Z-score: 1.3. FRAX 10-YEAR PROBABILITY OF FRACTURE: 10-year fracture risk is performed using the [employer] FRAX calculator based on patient-reported risk factors. Major osteoporotic fracture: 7.0%. Hip fracture: 0.2%. IMPRESSION: Normal based on BMD. World Health Organization criteria for BMD impression classify patients as: - Normal (T-score at or above -1.0). - Osteopenia (T-score between -1.0 and -2.5). - Osteoporosis (T-score at or below -2.5). Per the Bone Health and Osteoporosis Foundation the FRAX tool is most useful Legally authenticated by ANMOL Sheppard 2025-08-25 13:38:17 in patients with low femoral neck bone mineral density (osteopenia). FRAX is calculated per request. RECOMMENDATIONS: 1. All patients should optimize their calcium and vitamin D intake. 2. Consider FDA-approved medical therapies in postmenopausal women and men aged 50 years and older, based on the following: - A hip or vertebral (clinical or morphometric) fracture. - T-score less than or equal to -2.5 at the femoral neck or spine after appropriate evaluation to exclude secondary causes. - Low bone density (T-score between -1.0 and -2.5 at the femoral neck or spine) and a 10-year probability of a hip fracture greater than or equal to 3% or a 10-year probability of a major osteoporosis-related fracture greater than or equal to 20% based on FRAX calculation. - Clinician judgment and/or patient preferences may indicate treatment for people with 10-year fracture probabilities above or below these levels. - Further guidance on treatment can be found at the National Osteoporosis Foundation's website bonesource.org. 3. Patients with diagnosis of osteoporosis or at high risk for fracture should have regular bone mineral density tests. For patients eligible for Medicare, routine testing is allowed once every 2 years. The testing frequency can be increased to one year for patients who have rapidly progressing disease, those who are receiving or discontinuing medical therapy to restore bone mass or have additional risk factors. Electronically signed by: Rick Corea MD 08/25/2025 01:38 PM EDT RP Dictated By: RICK COREA Transcribed By: Transcribed On: 08/25/2025 1:38 PM Electronically signed by: RICK COREA 08/25/2025 Thank you for referring ANN-MARIE ORANTES to [facility]. Legally authenticated by ANMOL Sheppard 2025-08-25 13:38:17 Procedure Note Provider, Generic Muse - 08/25/2025 [place] [address] Name: ANN-MARIE ORANTES Exam Date: 08/25/2025 : 1960 Age 64 years Gender: F Physician: ROCHELLE PONCE Facility: [facility] Facility HSV: Outpatient Exam: DEXA BONE DENSITY AX EXAMINATION: DUAL X-RAY ABSORPTIOMETRY (DXA) FOR BONE MINERAL DENSITY. CLINICAL INDICATION: Screening for osteoporosis; Postmenopausal. CLINICAL HISTORY: 64 years old, Female. Postmenopausal. TECHNIQUE: An axial (e.g., hips, spine) and/or appendicular (e.g.,radius) exam was performed, as appropriate, using [employer] densitometer.Images are obtained for bone mineral density measurement and are not obtainedfor diagnostic purposes. [id number] COMPARISON: None. FINDINGS: Scan quality: Good. LUMBAR SPINE (L1-L4): BMD (in g/cm*2): 1.334. T-score: 1.1. Z-score: 2.7. LEFT FEMORAL NECK: BMD (in g/cm*2): 1.028. T-score: -0.1. Z-score: 1.4. LEFT TOTAL HIP: BMD (in g/cm*2): 0.997. T-score: -0.1. Z-score: 1.1. RIGHT FEMORAL NECK: BMD (in g/cm*2): 1.008. T-score: -0.2. Z-score: 1.2. RIGHT TOTAL HIP: BMD (in g/cm*2): 1.029. T-score: 0.2. Z-score: 1.3. FRAX 10-YEAR PROBABILITY OF FRACTURE: 10-year fracture risk is performed using the [employer]RA[employer] calculator based on patient-reported risk factors. Major osteoporotic fracture: 7.0%. Hip fracture: 0.2%. IMPRESSION: Normal based on BMD. World Health Organization criteria for BMD impression classify patientsas: - Normal (T-score at or above -1.0). - Osteopenia (T-score between -1.0 and -2.5). - Osteoporosis (T-score at or below -2.5). Per the Bone Health and Osteoporosis Foundation the FRAX tool is mostuseful Legally authenticated by ANMOL Sheppard 2025-08-25 13:38:17 in patients with low femoral neck bone mineral density (osteopenia). FRAXis calculated per request. RECOMMENDATIONS: 1. All patients should optimize their calcium and vitamin D intake. 2. Consider FDA-approved medical therapies in postmenopausal women andmen aged 50 years and older, based on the following: - A hip or vertebral (clinical or morphometric) fracture. - T-score less than or equal to -2.5 at the femoral neck or spine after appropriate evaluation to exclude secondary causes. - Low bone density (T-score between -1.0 and -2.5 at the femoral neck or spine) and a 10-year probability of a hip fracture greater than or equalto 3% or a 10-year probability of a major osteoporosis-related fracture greaterthan or equal to 20% based on FRAX calculation. - Clinician judgment and/or patient preferences may indicate treatmentfor people with 10-year fracture probabilities above or below these levels. - Further guidance on treatment can be found at the NationalOsteoporosis Foundation's website bonesource.org. 3. Patients with diagnosis of osteoporosis or at high risk for fracture should have regular bone mineral density tests. For patients eligiblefor Medicare, routine testing is allowed once every 2 years. The testingfrequency can be increased to one year for patients who have rapidly progressing disease, those who are receiving or discontinuing medical therapy torestore bone mass or have additional risk factors. Electronically signed by: Rick Corea MD 08/25/2025 01:38 PM EDT RP Dictated By: RICK COREA Transcribed By: Transcribed On: 08/25/2025 1:38 PM Electronically signed by: RICK COREA 08/25/2025 Thank you for referring ANN-MARIE ORANTES to [facility]. Legally authenticated by ANMOL Sheppard 2025-08-25 13:38:17 us Rochelle Ponce LAY MIDWIFE IMG DXA PROCEDURES Final Re sult documented in this encounter Visit Diagnoses Not on filedocumented [...] documented as of this encounter Care Teams Cookie Mixer Helper Relationship Specialty Start Date End Date Teo Ellis MD [address] [place] [address] PCP - General Family Medicine 03/05/24 documented as of this encounter
--- OUTSIDE RECORDS SUMMARY | 2025-11-05 14:23 | XMS_ITS | Encounter Summary ---
Author Organization Healthcare Address [address] [place] [address] Care Team Providers Care Evaluation Engineer Name Role Phone Teo Ellis MD Primary Care Provider [phone] Encounter Details Date Type Department Care Team (Late st Contact Info) Description 08/31/2025 Results Follow-Up Obstetrics & Gynecology [address] [place] [address] Rochelle Ponce, SUPERVISOR [employer] [address] [place] [address] Social History Tobacco Use Types [...] Description 08/08/2026 10:30 AM EDT Office Visit [facility] [place] [address], [address] [place] [address] Michelle Thrasher, SUPERVISOR [employer]SE [address] [place] [address] documented as of this encounter [...] documented as of this encounter Care Teams Evaluation Engineer Relationship Specialty Start Date End Date Teo Ellis MD [address] [place] [address] [address] [place] [address] PCP - General Family Medicine 03/05/24 documented as of this encounter
--- OUTSIDE RECORDS SUMMARY | 2025-11-05 14:23 | XMS_ITS | Clinical Summary ---
Author Organization [facility] Address [address] [place] [address] Care Team Providers Care Team Leader Surgery Name Role Phone Teo Ellis MD Primary Care Provider [phone] Allergies No known active allergies Medications Coenzyme Q10 (CoQ10) 100 MG capsule 200 mg daily Active carvedilol (Coreg) 3.125 MG tablet Take 1 tablet by mouth 2 times a day with meals. 180 tablet 3 07/23/2025 Active losartan-hydroCH LOROthiazide (Hyzaar) 100-25 MG tablet Take 1 tablet by mouth daily. 90 tablet 3 07/23/2025 Active Xarelto 20 MG tablet Take 1 tablet by mouth daily. Take with food. 90 tablet 3 07/23/2025 Active Active Problems Problem Noted Date Diagnosed Date Hyperglycemia 07/23/2025 Mixed hyperlipidemia 06/20/2022 History of endometrial cancer 09/11/2021 Assessment & Plan (09/11/2021 5:28 PM EDT): - normal exam today - continue yearly exams, advised to return sooner if she has vaginal bleeding. Afib 10/18/2019 Endometrial adenocarcinoma 09/18/2019 Essential hypertension 09/03/2019 Postmenopausal bleeding 09/03/2019 Encounters Date Type Department Care Team Description 08/31/2025 Results Follow-Up Obstetrics & Gynecology [address] [place] [address] Sharyn Ponce, CHECKER LOADER 08/25/2025 Results Follow-Up Obstetrics & Gynecology [address] [place] [address] Sharyn Ponce, MANISHA 08/25/2025 Outside Procedure External Location [address] [place] [address] Sharyn Ponce, MANISHA 08/20/2025 10:15 AM EDT Office Visit Obstetrics & Gynecology [address] [place] [address] Sharyn Ponce, CHECKER LOADER Encounter for gynecological examination without abnormal finding (Primary Dx); Screening for osteoporosis; Postmenopausal 08/20/2025 Travel 08/17/2025 Travel from Last 3 Months Immunizations Immunization Administration Dates Next Due Zoster, Recombinant 03/05/2023,12/18/2022 Family History Medical History Relation Name Comments Cancer Brother Heart attack Brother Pancreatic cancer Brother Family his tory of bone cancer Cancer Father Heart attack Father Hyperlipidemia Father adrenal cance r adrenal cancer Father Dementia Mother Heart murmur Mother Valvular heart disease Mother Relation Name Status Comments Brother Father Mother Social History Tobacco Use Types Packs/Day Years Used Date Smoking Tobacco: Never Passive Smoke Exposure: Past Smokeless Tobacco: Never Tobacco Cessation:Counseling Given: Not Answered Alcohol Use Standard Drinks/Week Comments Not Currently [...] Orientation Straight 09/04/2021 12 :53 PM EDT Last Filed Vital Signs Vital Sign Reading Time Taken Comments Blood Pressure 115/74 08/20/2025 10:20 AM EDT Pulse 48 08/20/2025 10:20 AM EDT Temperature 36.6 C (97.9 F) 08/20/2025 10:20 AM EDT Respiratory Rate 14 08/20/2025 10:2 0 AM EDT Oxygen Saturation 96% 08/20/2025 10: 20 AM EDT Inhaled Oxygen Concentration - - Weight 95.1 kg (209 lb 10.5 oz) 025 10:20 AM EDT Height 167.6 cm (5' 6 ) 08/20/2025 10:2 0 AM EDT Body Mass Index 33.84 08/20/2025 10:20 AM EDT Plan of Treatment Upcoming Encounters Date Type Department Care Team (Late st Contact Info) Description 08/08/2026 10:30 AM EDT Office Visit [facility] [address] [facility], [address] [place] [address] Anna MarieMichelle, CHECKER LOADER [address] [place] [address] Health Maintenance Due Date Last Done Comments [facility]-Hepatitis C Screening 1960 [facility]-/Child/Adol SDOH Screenings 1960 [facility]- SDOH Screenings 1978 [facility]-Adult SDOH Screenings 1978 [facility]-DTaP,Tdap,and Td Vaccines (1 - Tdap) 1979 [facility]-Pneumococcal Vaccine: 50+ Years (1 of 2 - PCV) 1979 CT Colonography 2005 Colonoscopy 2005 FIT-DNA 2005 FIT 2005 FOBT 2005 Sigmoidoscopy 2005 [facility]-Colorectal Cancer Screening 2005 [id number] Vaccine ( season) 2025 03/05/2023, 09/12/2021, 02/14/2021, Additional history exists [facility]-Influenza Vaccine (#1) 2025 [facility]-Depression Screening 08/20/2026 08/20/2025, 03/2025 [facility]-Breast Cancer Screening 06/03/202705/18, 03/05/2024, 02/01/2023, Additional history exists [facility]-Bone Density Scan 08/25/2027 08/25/2025 [facility]-RSV Vaccine: 60+ Years or (1 - 1-dose 75+ series) 2035 [facility]-Zoster Vaccines Completed 03/05/2023, [facility]-Cervical Cancer Screening Discontinued [facility]-HPV/Cotest Discontinued 08/20/2025 [facility]-Obesity Intervention Completed 025, 07/23/2025, 07/23/2024, Additional history exists [facility]-Pap Smear Discontinued 08/20/2025 HPV Vaccines (No Doses Required) Completed [facility]-HIB Vaccines Aged Out No longer e ligible based on patient's age to complete this topic [facility]-Hepatitis A Vaccines Aged Out No longer eligible based on patient's age to complete this topic [facility]-IPV Vaccines Aged Out No longer e ligible based on patient's age to complete this topic [facility]-Rotavirus Vaccines Aged Out No lo nger eligible based on patient's age to complete this topic Procedures Procedure Name Priority Date/Time Associated Diagnosis Comments DEXA BONE DENSITY 08/25/2025 9:3 9 AM EDT PAP TEST - CYTOLOGY Routine 08/20/2025 1 0:41 AM EDT Encounter for gynecological examination without abnormal finding HPV HIGH RISK SCREEN BY MOLD YARN SUPERVISOR-MEDIATE D AMPLIFICATION (TMA), WITH REFLEX TO GENOTYPES 16 AND 18/45, THINPREP(SO) Routine 08/20/2025 10:41 AM EDT Encounter for gynecological examination without abnormal finding MAMMOGRAPHY BREAST SCREENING TOMOSYNTHESIS BILATERAL Routine 06/03/2025 10:28 AM EDT Encounter for screening mammogram for malignant neoplasm of breast from Last 3 Months or Most Recently Relevant to Health Maintenance Results * Dexa Bone Density (08/25/2025 9:39 AM EDT) Anatomical Region Laterality Modality L-spine Radiographic Eva ging 08/25/2025 9:39 AM EDT Narrative 08/25/2025 1:42 [place] [address] Name: ANN-MARIE ORANTES Exam Date: 08/25/2025 : 1960 Age 64 years Gender: F Physician: SHARYN PONCE Facility: [facility] Facility HSV: Outpatient Exam: DEXA BONE DENSITY AX EXAMINATION: DUAL X-RAY ABSORPTIOMETRY (DXA) FOR BONE MINERAL DENSITY. CLINICAL INDICATION: Screening for osteoporosis; Postmenopausal. CLINICAL HISTORY: 64 years old, Female. Postmenopausal. TECHNIQUE: An axial (e.g., hips, spine) and/or appendicular (e.g., radius) exam was performed, as appropriate, using [employer] densitometer. Images are obtained for bone mineral [...] risk is performed using the [employer] FRAX calculator based on patient-reported risk factors. [...] Rick Corea MD 08/25/2025 01:38 PM EDT Dictated By: RICK COREA Transcribed By: Transcribed On: 08/25/2025 1:38 PM Electronically signed by: RICK COREA 08/25/2025 Thank you for referring ANN[facility]MARIE ORANTES to [facility]. Legally authenticated by ANMOL Sheppard 2025-08-25 13:38:17 Procedure Note Provider, Generic [facility] - 08/25/2025 [place] [address] Name: ANN-MARIE ORANTES Exam Date: 08/25/2025 : 1960 Age 64 years Gender: F Physician: SHARYN PONCE Facility: [facility] Facility HSV: Outpatient Exam: DEXA BONE DENSITY AX EXAMINATION: DUAL X-RAY ABSORPTIOMETRY (DXA) FOR BONE MINERAL DENSITY. CLINICAL INDICATION: Screening for osteoporosis; Postmenopausal. CLINICAL HISTORY: 64 years old, Female. Postmenopausal. TECHNIQUE: An axial (e.g., hips, spine) and/or appendicular (e.g.,radius) exam was performed, as appropriate, using [employer] densitometer.Images are obtained for bone mineral density [...] Rick Corea MD 08/25/2025 01:38 PM EDT Dictated By: RICK COREA Transcribed By: Transcribed On: 08/25/2025 1:38 PM Electronically signed by: RICK COREA 08/25/2025 Thank you for referring ANN-MARIE ORANTES to [facility]. Legally authenticated by ANMOL Sheppard 2025-08-25 13:38:17 us Sharyn Ponce APRN IMG DXA PROCEDURES Final Re sult * HPV High Risk Screen by Tongue And Groove Machine Operator-Mediated Amplification (TMA), with Reflex to Genotypes 16 and18/45, ThinPrep(SO) (08/20/2025 10:41 AM EDT) HPV Source Not Provided 08/29/2025 4:11 AM EDT [email or web address]) HPV, High Risk by TMA Not Detected 08/29/2025 4:11 AM EDT [facility] SARA SEGOVIA) Thin Prep Vaginal structure / Unknown 08/20/2025 10:41 AM EDT 08/26/2025 4:15 PM EDT Narrative MOHAN SEGOVIA) - 08/29/2025 4:11 AM EDT Specimen source was not provided. Please refer to the [employer] Test Directory for validated specimen source information: http://www.[employer]/testing. Interpret results with caution. INTERPRETIVE INFORMATION: HPV, High Risk by TMA This test detects E6/E7 viral messenger RNA of 14 high-risk HPV types (16, 18, 31, 33, 35, 39, 45, 51, 52, 56, 58, 59, 66, and 68) associated with cervical cancer and its precursor lesions. This test does not discriminate between the 14 high-risk HPV types. Sensitivity may be affected by specimen collection methods, stage of infection, and the presence of interfering substances. Results should be interpreted in conjunction with other available laboratory and clinical data. A negative high-risk HPV result does not exclude the presence of other high-risk HPV types. HPV testing should not be used for screening or management of atypical squamous cells of undetermined significance (ASCUS) in women under age 21. Performed By: [facility] [address] [place] [address] Car Repairer Apprentice: Guanakito Alarcon MD, PhD CLIA Number: [id number] us Sharyn Ponce APRN LAB REF LAB BLOOD AND FLUID ORD Final Result [facility] SARA SEGOVIA) [address] [id number] * Pap Test (08/20/2025 10:41 AM EDT) Case Report Cytology Case: [id number] Authorizing Provider: Sharyn Ponce APRN Collected: 08/20/2025 1041 Ordering Location: Obstetrics & Gynecology Received: 08/23/2025 0920 First Screen: Gilda Kahn Rescreen: Yamila Shirley Specimen: ThinPrep Pap Test, Liquid-Based Vaginal 08/26/2025 4:[address] [facility] Interpretation NEGATIVE FOR INTRAEPITHELIAL LESION OR MALIGNANCY 08/26/2025 4:[address] [facility] at 1615 EDT Specimen Adequacy Satisfactory for evaluation. Slide imaged by the ThinPrep Imaging system and selected 22 garcia reviewed then full manual screening. 08/26/2025 4:[address] [facility] Cervical cytology is a screening test primarily for squamous cancers and precursors and has associated false negative and positive results. New technologies such as liquid based sampling may decrease but will not eliminate all false negative results. Regular screening and follow-up of unexplained clinical signs and symptoms are recommended to minimize false negative results. Please see the ASCCP website (www.asccp.org)fo r followup recommendations. If HPV testing was requested, correlation with the results is suggested (please call Microbiology at [phone] for results). 08/26/2025 4:[address] [facility] Menstrual Status Not Applicable 07/2025 4:[address] [facility] History of Hysterectomy Hysterectomy without remaining cervix 08/26/2025 4:[address] [facility] Contraceptive History Not Applicable 08/26/2025 4:[address] [facility] Screening Type Previous or Suspected Abnormality 08/26/2025 4:[address] [facility] HPV Testing Requested? Request HPV Testing Regardless of Pap Test Findings 08/26/2025 4:[address] [facility] Previous Cancer History Yes 08/26/2025 4:[address] [facility] Previous Cancer Date Uterine 08/26/2025 4:[address] [facility] Previous or Suspected Abnormality Previous Wheel Press Clerk Biopsy/Surgery Previous Wheel Press Clerk Cancer 08/26/2025 4:[address] [facility] Comment: Uterine cancer Clinical Information Z01.419 - Encounter for gynecological examination without abnormal finding [ICD-10-CM] 08/26/2025 4:[address] [facility] Thin Prep Vaginal structure / Unknown 08/20/2025 10:41 AM EDT 08/23/2025 9:20 AM EDT us Sharyn Ponce APRN LAB CYTOLOGY ORDERABLES Fin al Result [facility] [address] [place] [address] * Mammography Breast Screening Tomosynthesis Bilateral (06/03/2025 10:28 AM EDT) Anatomical Region Laterality Modality Breast Bilateral Mammography Impressions 06/05/2025 11:00 AM EDT No mammographic evidence of malignancy. BI-RADS CATEGORY: Overall: 1 - Negative RECOMMENDATION: - Routine Screening Mammogram in 1 Year. Patient Lifetime Risk Score of Breast Malignancy: 6.5% This risk assessment is calculated using the Cinda Risk Assessment model which may underestimate the lifetime risk of breast malignancy. COMMUNICATION: Computer-aided detection (CAD) and tomosynthesis were utilized by the radiologist in the interpretation of this examination. The results and recommendations will be sent to the patient in a printed lay language version of the imaging report. Narrative 06/05/2025 11:00 AM EDT EXAM: Mammography Breast Screening with Tomosynthesis REASON FOR EXAM: Screening Mammogram HISTORY: Patient is 64 y.o. Surgical and procedural history include hysterectomy (Hysterectomy from [facility]). COMPARISON STUDIES: Compared to: 04/13/2020 Mammography Breast Screening Tomosynthesis Bilateral at [facility] 12/05/2021 Mammography Breast Screening Tomosynthesis Bilateral at [facility] 02/01/2023 Mammography Breast Screening Tomosynthesis Bilateral at [facility] 03/05/2024 Mammography Breast Screening Tomosynthesis Bilateral at [facility] BREAST COMPOSITION: There are scattered areas of fibroglandular density. FINDINGS: There are no suspicious masses, calcifications, or areas of architectural distortion. Teo Ellis MD IMG BI PROCEDURES Final Result from Last 3 Months or Most Recently Relevant to Health Maintenance Insurance Olya Acland Sandeep [facility] [place] [id number] [place]IM[place] Care Teams Team Leader Surgery Relationship Specialty Start Date End Date Teo Ellis MD [address] [place] [address] PCP - General Family Medicine 03/05/24
--- OUTSIDE RECORDS SUMMARY | 2025-11-05 14:23 | XMS_ITS | Encounter Summary ---
Author Organization Healthcare Address [address] [place] [address] Care Team Providers Care Mission Planner Name Role Phone Nely Ding APRN Primary Care Provider [phone] Teo Ellis MD Primary Care Provider [phone] Reason for Visit * Reason Comments Med Refill Encounter Details Date Type Department Care Team (Late st Contact Info) Description 02/15/2023 Refill [facility] [place] [address], [address] [place] [address] Ngozi Gaytan, DO [address] [place] [address] Social History Tobacco Use Types Packs/Day Years Used Date Smoking Tobacco: Never Smokeless Tobacco: Never Comments No Sex and Gender Information Value Date Recorded Sex Assigned at Female 09/04/2021 12:53 PM EDT Legal Sex Female 7:33 PM EDT Gender Identity Female 09/04/2021 12:53 PM EDT Sexual Orientation Straight 09/04/2021 12 :53 PM EDT COVID-19 Exposure Response Date Recorded In the last 10 days, have yo u been in contact with someone who was confirmed or suspected to have Coronavirus/COVID-19? No / Unsure 02/01/2023 1:19 PM EDT documented as of this encounter Plan of Treatment Upcoming Encounters Date Type Department Care Team (Late st Contact Info) Description 08/08/2026 10:30 AM EDT Office Visit [facility] [place] [address], [address] [place] [id number] Michelle Thrasher APRN [address] [place] [address] documented as of this encounter Visit Diagnoses Not on filedocumented in this encounter Additional Health Concerns Assessment Noted Time A fall risk assessment has been complete d for the patient 06/11/2022 1:40 PM EDT documented as of this encounter Care Teams Mission Planner Relationship Specialty Start Date End Date Nely Ding APRN [address] [place] [address] PCP - General 03/31/21 03/04/24 Teo Ellis MD [address] [place] [address] PCP - General Family Medicine 03/05/24 documented as of this encounter
[2025-11-05 15:50] LABS: Cholesterol 204 mg/dl (140-200); Triglycerides 147 mg/dl (30-150)
[2025-11-05 15:51] LABS: HDL Cholesterol 52 mg/dl (40-60)
[2025-11-05 16:33] LABS: Hemoglobin A1C 5.5 % (4.0-6.0)
== END 2025-11-05 23:59 | disposition home or self-care (01) ==
LOC: LAB 14:21
PROVIDERS: PCP Nurse Practitioner; Visit Provider Nurse Practitioner Family
DX: R73.9 Hyperglycemia, unspecified (principal)
CPT/HCPCS: 36415; 80061; 83036